=== PATIENT | male | born 1975 | race African-American/Black ===

== ENCOUNTER 2018-08-27 07:29 | Emergency (ER) | payer BC ==
[~2018-08-27] VITALS: Ht 177.8 cm; Wt 84.8 kg
[~2018-08-27 07:29] MED LIST: DOCUSATE NA250 MG PO; EXFORGE1 TA1 PO; IBUPROFEN400 MG PO; LIPITOR40 MG PO; TOPROL XL100 MG PO
[2018-08-27 07:38] VITALS: Ht 177.8 cm; Wt 84.8 kg
[2018-08-27 08:26] LABS: BASOPHIL % 0.4 % (0-2); CALCIUM 9.9 mg/dL (8.5-10.1); CARBON DIOXIDE 25.5 mmol/L (21-32); CREATININE SERUM 1.4 mg/dL (0.7-1.3); PLATELET COUNT 173 x10^3mcL (130-400); POTASSIUM SERUM 3.6 mmol/L (3.5-5.1)
[2018-08-27 08:32] LABS: ALBUMIN 3.9 g/dL (3.4-5.0); BILIRUBIN TOTAL 0.8 mg/dL (0.20-1.00); TOTAL PROTEIN, SERUM 7.9 g/dL (6.4-8.2)
[2018-08-27 09:37] VITALS: BP 139/74
== END 2018-08-27 09:29 | disposition home or self-care (01) ==
LOC: ED 07:29
PROVIDERS: Emergency Medicine
DX: R11.2 Nausea with vomiting, unspecified (principal); R10.13 Epigastric pain; R50.9 Fever, unspecified; I10 Essential (primary) hypertension
CPT/HCPCS: J1885; J2405; J7030; J7040